=== PATIENT | female | born 1940 | race Caucasian/White ===

== ENCOUNTER 2021-06-25 20:39 | Inpatient (IN) | payer OTHER ==
[~2021-06-25] VITALS: Ht 175.3 cm; Wt 88.5 kg
--- NOTE | ~2021-06-25 | HC ---
[facility] [place] [address] CONSULTATION Name: IANLUIS Chago Room #: 351-P [facility] IN M.R.#: [id number] Admission: 06/25/21 Attend Phys: Samantha Tello MD Discharge: Date of : 42 Report #: [id number] THIS REPORT FOR: cc: Siria Alexandre MD, Ramilo MD Khosla,Meliton Young MD ~ DATE OF SERVICE: 07/08/2021 HISTORY OF PRESENT ILLNESS: A 81-year-old female patient who was seen by me for altered mental status. The patient virtually has no speech. She does not have much expression. She can follow simple commands, but otherwise did not talk to me much. So, the history is mostly from the records. This patient is being seen by multiple consultants. It looks like she has a history of CHF, COPD, difficulty with breathing. She was COVID positive when she came to Emergency Room and required oxygen. REVIEW OF SYSTEMS: This patient's 14-point review of system is from the records. She is in the hospital for a long time now. She has a pretty extensive history. Record indicates she has oxygen requiring COPD. She has a history of cardiomyopathy. She lives in a facility. This is all from the record. This is all the 14-point review of system I can get in this patient. PAST MEDICAL HISTORY: Positive for lung problem as well as cardiac problems as I understand. FAMILY HISTORY: Unavailable. SOCIAL HISTORY: It looks like she is living in a facility PHYSICAL EXAMINATION: The patient's examination is limited. She did not say anything to me. She tried to talk, but appears very dysarthric. She did follow commands many times, but good cranial nerve examination especially visual nash were not possible. She moved left side less spontaneously. She could not cooperate with sensory examination. Reflexes are difficult to tell because she does not relax. There is no meningeal sign. I could not look at the fundus. She does appear to be short of breath. Cardiac examination is unremarkable. Blood pressure is 142/73, pulse is 90, temperature is 97.5. LABORATORY DATA: Last white count was normal. At one time she had hyponatremia, but that has resolved. GFR is now 190. She did have a CT scan of the head which was unremarkable. She is moderately built individual who does not have any dysmorphic features of eyes, ears and face. She does not have any thyroid mass or carotid bruit. Her vision and hearing looks adequate. IMPRESSION: Difficult to form in this patient. She appeared to have encephalopathy secondary to COVID and multiple other problems. Some of them are [address] [address] CONSULTATION Name: LUIS SOSA Room #: 351[facility] IN ..#: [id number] Admission: 06/25/21 Attend Phys: Samantha Tello MD Discharge: Date of : 42 Report #: [id number] baseline and some of them are because of COVID. I reviewed the record and it is being discussed to make our palliative care because of multiple systemic problem. I think that question need to be decided first. If further workup is desired, then I think this patient will need an MRI as a next test to see if she did have a stroke and then she may need some more testing on her. 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 Thank you very much for this referral. We will discuss the patient with hospitalist tomorrow. By: [id number] Meliton Damian MD /nt
--- NOTE | ~2021-06-25 | EMS ---
[facility] [address] [place] [address] EMS Patient Care Report Name: LUIS SOSA Room #: 170-6 ADM IN .R.#: [id number] Admission: 06/25/21 Attend Phys: Samantha Tello MD Discharge: Date of : 42 Report #: [id number] THIS REPORT FOR: //name// Report Transmitted: 06/26/2021 06:07 EMS Care Summary [place], [place]/[facility] Incident [id number] @ 06/25/2021 19:59 Incident Location [id number] [place] [address] Patient LUIS SOSA Female, 81 Years 1940 Patient Address [id number] [place], [place] [address] [place] [address] Patient History Congestive Heart Failure (CHF),Chronic Obstructive Pulmonary Disease (COPD),Hyperlipidemia, Patient Allergies No known allergies, Patient Medications Other, Chief Complaint Covid-19 Disposition Transported No Lights/[place] Dispatch Reason Breathing Problem Transported To [facility] Narrative Arrived on the scene, with P28, for a 81 y/o female that is lying in her bed in the Covid section of the intermediate. Staff said that the Pt has a 101.1 [facility] [address] [place] [address] EMS Patient Care Report Name: LUIS SOSA Room #: 170-6 ADM IN .Cat.#: [id number] Admission: 06/25/21 Attend Phys: Samantha Tello MD Discharge: Date of : 42 Report #: [id number] temp, low O2 sats, rapid breathing, and rapid heart rate. Staff said that they gave the Pt a Tylenol and put her on O2 but it didn't help much. That is why they called us to have her go to the hospital. See Pt Assessment Covid Symptoms See Flowchart. Moved the Pt from the bed to the cot via sheet. Transported to the hospital with zero change or incidents. Moved the Pt from the cot to the bed via sheet. Transferred care to receiving facility. Initial Vitals @20:30P: 120,R: 20,BP: 108/70,Pain: 0/10,GCS: 15,CO: 4,SpO2: 97,Revised Trauma: 12,RI Suspected: false @20:16P: 162,R: 36,BP: 110/74,Pain: 0/10,GCS: 15,SpO2: 88,Revised Trauma: 11,RI Suspected: false Assessments @20:12MENTAL:Event Oriented,Time Oriented,Place Oriented,Person Oriented,SKIN:Hot,HEENT:Head/Face: No Abnormalities,Eyes: No Abnormalities,Neck/Airway: No Abnormalities,LUNG SOUNDS:General: No Abnormalities,Left Upper: No Abnormalities,Right Upper: No Abnormalities,Left Lower: No Abnormalities,Right Lower: No Abnormalities,ABDOMEN:General: No Abnormalities,Left Upper: No Abnormalities,Right Upper: No Abnormalities,Left Lower: No Abnormalities,Right Lower: No Abnormalities,PELVIS//GI:No Abnormalities,EXTREMITIES:Left Arm: No Abnormalities,Right Arm: No Abnormalities,Left Leg: No Abnormalities,Right Leg: No Abnormalities,PULSE:Radial: 2+ Normal,NEURO:No Abnormalities, Impression COVID-19 - Confirmed by testing Procedures @PTAOxygen FlowRate: 4 Device: Nasal Cannula (NC) Response: ImprovedSucceeded@20:12ALS AssessmentResponse: Unchanged@20:143-Lead ECGResponse: UnchangedSucceeded Timeline TRAIN BRAKER,Oxygen FlowRate: 4 Device: Nasal Cannula (NC) Response: ImprovedSucceeded, 19:54,Call Received 19:54,Dispatch Notified 19:59,Dispatched 19:59,En Route 20:06,On Scene 20:12,At Patient [address] [address] EMS Patient Care Report Name: SOSALUIS D Room #: 170-6 ADM IN ..#: [id number] Admission: 06/25/21 Attend Phys: Samantha Tello MD Discharge: Date of : 42 Report #: [id number] 20:12,ALS Assessment,Response: Unchanged 20:14,3-Lead ECG,Response: UnchangedSucceeded, 20:16,BP: 110/74 M,PULSE: 162,RR: 36 R,SPO2: 88 Ox,ETCO2: ,BG: ,PAIN: 0,GCS: 15, 20:22,Depart Scene 20:30,BP: 108/70 M,PULSE: 120,RR: 20 R,SPO2: 97 Ox,ETCO2: ,BG: ,PAIN: 0,GCS: 15, 20:31,At Destination 20:42,Call Closed Disclaimer v1.1 Copyright 2020 [employer] This EMS Care Summary contains data elements from the applicable legal record (which may be displayed differently). It is designed to provide pertinent information for the following purposes: continuity of care, clinical quality, and state data reporting. The complete legal record is available to ED staff and administrators of the receiving hospital in [email or web address]'s Patient Tracker. All data is provided "as is."
[2021-06-25 20:40] VITALS: BP 100/56
[2021-06-25 21:41] LABS: ABSOLUTE NEUTROPHILS 2.9 thou/uL (1.4-8.2); BASOPHILS 0.2 % (0.0-2.0); EOSINOPHILS 0.1 % (0.0-3.0); HEMATOCRIT 41.8 % (37.0-47.0); HEMOGLOBIN 13.1 gm/dL (12.0-15.0); LYMPHOCYTES 13.9 % (24.0-44.0); MCH 25.6 pg (26.0-34.0); MCHC 31.4 g/dL (28.0-37.0); MCV 81.7 fL (80.0-100.0); MONOCYTES 12.2 % (1.0-8.0); PLATELET COUNT 224 thou/uL (150-400); POLYS 73.6 % (36.0-66.0); RBC 5.12 mil/uL (4.20-5.00); RDW 14.6 % (10.5-14.5)
[2021-06-25 21:47] LABS: ANION GAP 2 mmol/L (7-16); BUN 24 mg/dL (7-18); CALCIUM 8.6 mg/dL (8.5-10.1); CHLORIDE 105 mmol/L (98-107); CO2 35 mmol/L (21-32); GLUCOSE 125 mg/dL (74-106); POTASSIUM 4.5 mmol/L (3.5-5.1); SODIUM 142 mmol/L (136-145)
[2021-06-25 21:58] LABS: ALBUMIN 2.7 g/dL (3.4-5.0); SGOT 35 U/L (15-37); SGPT 24 U/L (14-59); TOTAL BILIRUBIN 0.3 mg/dL (0.2-1.0); TOTAL PROTEIN 6.4 g/dL (6.4-8.2); TROPONIN-I <0.06 ng/mL (<0.06)
[2021-06-25 22:18] LABS: BE(vivo) 5.1 mmol/L (-2 to +3); HCO3 31.3 mmol/L (22.0-26.0); PCO2 52.7 mmHg (35.0-45.0); PO2 63.8 mmHg (80.0-100.0); pH 7.392 (7.360-7.450); sO2 91.9 % (92.0-98.0)
[2021-06-26 04:08] LABS: ALBUMIN 2.5 g/dL (3.4-5.0); CREATININE 1.6 mg/dL (0.6-1.0); POTASSIUM 4.5 mmol/L (3.5-5.1); TOTAL BILIRUBIN 0.2 mg/dL (0.2-1.0); TOTAL PROTEIN 6.2 g/dL (6.4-8.2)
[2021-06-26 04:16] LABS: HEMATOCRIT 39.1 % (37.0-47.0); HEMOGLOBIN 12.1 gm/dL (12.0-15.0); MCH 25.6 pg (26.0-34.0); MCV 82.6 fL (80.0-100.0); RBC 4.73 mil/uL (4.20-5.00); RDW 14.1 % (10.5-14.5)
[2021-06-26 13:08] LABS: BE(vivo) 4.6 mmol/L (-2 to +3); HCO3 31.8 mmol/L (22.0-26.0); PCO2 58.7 mmHg (35.0-45.0); pH 7.352 (7.360-7.450); sO2 86.6 % (92.0-98.0)
[2021-06-26 13:09] LABS: PO2 55.2 mmHg (80.0-100.0)
--- NOTE | 2021-06-26 13:58 | EKG ---
[address] [address] ELECTROCARDIOGRAM REPORT Name: IANLUIS Chago Room #: 170-6 ADM IN M.R.#: [id number] Admission: 06/25/21 Attend Phys: Samantha Tello MD Discharge: Date of : 42 Report #: [id number] [facility] ED Test Date: 2021-06-25 Test Time: 20:45:59 Pat Name: LUIS SOSA Department: Room: 170 6 Gender: F Perinatal Breastfeeding Assistant: dipti : 1940 Requested By: Samantha Tello Order Number: [id number] MD: Sylvester Anthony Measurements Intervals [place] Rate: 108 P: 80 ID: [id number] QRS: -30 QRSD: 92 T: 85 QT: 315 QTc: 422 Interpretive Statements Sinus tachycardia Atrial premature complex Probable left ventricular hypertrophy Poor R wave progression Nonspecific T abnormalities, lateral leads Baseline wander in lead(s) II,aVR,aVF,V1,V2,V3 No previous ECG available for comparison Electronically Signed On 06-26-2021 13:58:41 CDT by Sylvester Anthony [email or web address] <ELECTRONICALLY SIGNED> By: Sylvester Anthony MD 06/26/21 1358 44 44 Sylvester Anthony MD /[facility]
--- NOTE | 2021-06-26 17:47 | NUR ---
81-year-old female with past medical history of CHF, COPD presented to the ED on 06-25-21 for evaluation of difficulty breathing. Patient she has had worsening difficulty breathing. She had a positive Covid test approximately 2 days prior to presentation to the ED. Patient has been admitted with Acute on chronic hypoxemic respiratory failure 2/2 COVID PNA. Patient is currently a patient at [facility] where her son Kishore Roberts is her next of kin at [phone]. As plan of care and assessments by MD team are completed CM will follow for all discharge needs.
--- NOTE | 2021-06-27 04:55 | HC ---
[facility] [place] [address] [address] CONSULTATION Name: IANLUIS Chago Room #: 170-6 ADM IN .R.#: [id number] Admission: 06/25/21 Attend Phys: Samantha Tello MD Discharge: Date of : 42 Report #: [id number] THIS REPORT FOR: cc: Siria Alexandre MD, Ramilo MD Barry,Uriel Reynolds MD ~ DATE OF SERVICE: 06/26/2021 INFECTIOUS DISEASE CONSULTATION ATTENDING PHYSICIAN: Dr. Tello. REASON FOR EVALUATION: COVID-19 infection, complicated by pneumonitis, respiratory failure. HISTORY OF PRESENT ILLNESS: The patient examined. This is a 81-year-old woman with fairly extensive medical history with O2 requiring COPD, normally on 4 liters. She has a cardiomyopathy with history of congestive heart failure, who resides in a facility due to disability, who was noted to be COVID positive on 06/23. She had progressive dyspnea, associated with cough, generalized myalgias, arthralgias, fevers, chills. At this point, she is quite encephalopathic, unable to give too many details of her history. She was evaluated in the emergency room. Chest x-ray showed bibasilar infiltrates. ABG: PH 7.392, pCO2 of 52.7, pO2 of 63.8 on baseline 4 liters. Lactic acid 1.0. ProBNP of 80, blood cultures collected and are sterile thus far. She was empirically placed on therapy with azithromycin and ceftriaxone. ALLERGIES: CIPRO. MEDICATIONS: In addition to the antibiotics include atorvastatin, famotidine, rivaroxaban, sacubitril and valsartan combination, amlodipine, carvedilol, budesonide, p.r.n. analgesics and antiemetics. PAST MEDICAL HISTORY: As noted above, COPD, O2 requiring at 4 liters baseline, cardiomyopathy, congestive heart failure, hypertension, hyperlipidemia, reflux, osteoarthritis. It is not clear, may have a degree of dementia. SOCIAL HISTORY: Disabled. FAMILY HISTORY: Noncontributory. REVIEW OF SYSTEMS: Not reliably obtained. PHYSICAL EXAMINATION: GENERAL: She appears chronically ill. She is confused, moderate distress. VITAL SIGNS: Temperature 98.6, pulse 97, respirations 17, blood pressure [address] [address] CONSULTATION Name: LUIS SOSA Room #: 1706 [facility] IN [facility].#: [id number] Admission: 06/25/21 Attend Phys: Samantha Tello MD Discharge: Date of : 42 Report #: [id number] 144/64. SKIN: Warm, dry, no rashes. HEENT: Nasal cannula in place. NECK: Supple. LUNGS: Scattered coarse breath sounds. HEART: Borderline tachycardic, may have a soft systolic murmur. ABDOMEN: Obese. No apparent tenderness, no peritoneal signs. GENITOURINARY AND RECTAL: Deferred. LABORATORY DATA: CBC: White count of 5.0, H and H 12.1 and 39.1, platelets 195. Electrolytes: Sodium 143, potassium 4.5, chloride 105, bicarbonate is 31, anion gap of 7, BUN and creatinine 30 and 1.6, glucose of 130. LFTs unremarkable. Albumin of 2.5, total protein 6.2. Estimated GFR of 31. ProBNP of 80. Lactic acid 1.0. ASSESSMENT AND PLAN: COVID-19 infection, complicated by pneumonitis and respiratory failure in a patient with underlying severe chronic obstructive pulmonary disease, also has encephalopathy. Whether this is primarily secondary to the coronavirus or perhaps some underlying with exacerbation is not entirely clear. We will continue combination therapy. She is on antibacterial treatment for possible secondary bacterial pneumonitis. We will add dexamethasone to her regimen in addition to Actemra. She remains quite tenuous at this point. Continue to monitor expectantly, at risk for additional complications. <ELECTRONICALLY SIGNED> By: Uriel Grey MD 06/27/21 [id number] [id number] Uriel Grey MD /nt
[2021-06-27 05:37] LABS: ALBUMIN 2.3 g/dL (3.4-5.0); ANION GAP 5 mmol/L (7-16); BUN 31 mg/dL (7-18); CALCIUM 8.1 mg/dL (8.5-10.1); CHLORIDE 109 mmol/L (98-107); CO2 32 mmol/L (21-32); CREATININE 0.8 mg/dL (0.6-1.0); DIRECT BILIRUBIN < 0.1 mg/dL (<0.1-0.2); GLUCOSE 128 mg/dL (74-106); PHOSPHORUS 2.5 mg/dL (2.5-4.9); POTASSIUM 4.5 mmol/L (3.5-5.1); SGOT 76 U/L (15-37); SGPT 31 U/L (30-65); SODIUM 146 mmol/L (136-145); TOTAL BILIRUBIN 0.2 mg/dL (0.2-1.0); TOTAL PROTEIN 5.8 g/dL (6.4-8.2)
--- NOTE | 2021-06-27 07:10 | NUR ---
TOOK OVER CARE FROM ANTHONY MENCHAAC AT THIS TIME
--- NOTE | 2021-06-27 08:12 | NUR ---
REPORT GIVEN TO ANTHONY JAIN AT THIS TIME. PHARMACY CALLED TO RESET MEDICATIONS. RT TO GIVE SCHEDULED BREATHING TX
[2021-06-27 15:25] VITALS: BP 103/58
[2021-06-27 21:06] VITALS: BP 103/55
[2021-06-28] VITALS (8 sets, daily range): BP systolic 101–159; BP diastolic 58–75
[2021-06-28 05:18] LABS: ALBUMIN 2.4 g/dL (3.4-5.0); ANION GAP 4 mmol/L (7-16); BUN 32 mg/dL (7-18); CALCIUM 8.8 mg/dL (8.5-10.1); CHLORIDE 109 mmol/L (98-107); CO2 34 mmol/L (21-32); CREATININE 0.9 mg/dL (0.6-1.0); DIRECT BILIRUBIN < 0.1 mg/dL (<0.1-0.2); GLUCOSE 121 mg/dL (74-106); PHOSPHORUS 3.2 mg/dL (2.6-4.7); POTASSIUM 4.9 mmol/L (3.5-5.1); SGOT 78 U/L (15-37); SGPT 31 U/L (14-59); SODIUM 147 mmol/L (136-145); TOTAL BILIRUBIN 0.2 mg/dL (0.2-1.0); TOTAL PROTEIN 5.9 g/dL (6.4-8.2)
[2021-06-28 05:33] LABS: ABSOLUTE NEUTROPHILS 2.9 thou/uL (1.4-8.2); BASOPHILS 0.1 % (0.0-2.0); HEMATOCRIT 37.6 % (37.0-47.0); HEMOGLOBIN 11.8 gm/dL (12.0-15.0); LYMPHOCYTES 21.3 % (24.0-44.0); MCH 25.7 pg (26.0-34.0); MCHC 31.4 g/dL (28.0-37.0); MONOCYTES 12.6 % (1.0-8.0); PLATELET COUNT 235 thou/uL (150-400); RBC 4.59 mil/uL (4.20-5.00); RDW 14.2 % (10.5-14.5); WBC 4.4 thou/uL (4.0-11.0)
--- NOTE | 2021-06-28 07:41 | NUR ---
TALKED WITH PHARMACY WHO WILL BE SENDING ALL THE MORNING MEDS
--- NOTE | 2021-06-28 09:29 | NUR ---
CALLED PHARMACY AGAIN ABOUT THE MORNING MEDS. PT SAID THEY WOULD BE DELIVERED SOON.
--- NOTE | 2021-06-29 03:03 | NUR ---
PT IS ALERT TO SELF ONLY. PLEASANTLY CONFUSED. DOES FOLLOW COMMANDS. DOES NOT ATTEMPT TO GET OOB. WRIST RESTRAINTS DC'D ON DAY SHIFT PER RN LISA. VSS, AFEBRILE. CURRENTLY TOLERATING OPTI-MELISSA WITH CONTINUOUS PULSE OX. DID HAVE ONE LOOSE STOOL. C-DIFF STILL PENDING. IVF INFUSING WITHOUT DIFFICULTY VIA LEFT AC IV. AFIB PER MONITOR. RATES CONTROLLED. SLOW PROGRESS TOWARDS DC GOALS. WILL CONTINUE TO MONITOR.
[2021-06-29 04:00] VITALS: BP 118/69
[2021-06-29 05:11] LABS: ALBUMIN 2.5 g/dL (3.4-5.0); ANION GAP 2 mmol/L (7-16); BUN 21 mg/dL (7-18); CALCIUM 8.5 mg/dL (8.5-10.1); CHLORIDE 111 mmol/L (98-107); CO2 34 mmol/L (21-32); CREATININE 0.7 mg/dL (0.6-1.0); DIRECT BILIRUBIN < 0.1 mg/dL (<0.1-0.2); GLUCOSE 134 mg/dL (74-106); PHOSPHORUS 2.6 mg/dL (2.6-4.7); POTASSIUM 4.2 mmol/L (3.5-5.1); SGOT 69 U/L (15-37); SGPT 34 U/L (14-59); SODIUM 147 mmol/L (136-145); TOTAL BILIRUBIN 0.2 mg/dL (0.2-1.0); TOTAL PROTEIN 5.7 g/dL (6.4-8.2)
[2021-06-29 08:05] VITALS: BP 134/68
[2021-06-29] MEDS ORDERED: VITAMIN C500 M2 PO (08:16)
[2021-06-29] MEDS ORDERED: AMLODIPINE BESY10 MG PO (08:16)
[2021-06-29] MEDS ORDERED: BROVANA15 MCG/2 M INH (08:17)
[2021-06-29] MEDS ORDERED: BUDESONIDE0.5 MG/2 M INH (08:17)
[2021-06-29] MEDS ORDERED: CARVEDILOL6.25 M1 PO (08:18)
[2021-06-29] MEDS ORDERED: VITAMIN D325 MC3 PO (08:19)
[2021-06-29] MEDS ORDERED: CYCLOBENZAPRINE5 MG PO (08:20)
[2021-06-29] MEDS ORDERED: FAMOTIDINE 20 M20 MG PO (08:20)
[2021-06-29] MEDS ORDERED: NEURONTIN300 MG PO (08:20)
[2021-06-29] MEDS ORDERED: NORCO5 PO (08:21)
[2021-06-29] MEDS ORDERED: MECLIZINE HCL12.5 MG PO (08:22)
[2021-06-29] MEDS ORDERED: IPRAT-ALBUT 0.5-3 ML INH (08:22)
[2021-06-29] MEDS ORDERED: NYSTATIN 100,0015 G1 TOP (08:23)
[2021-06-29] MEDS ORDERED: MIRALAX17 GM PO (08:24)
[2021-06-29] MEDS ORDERED: PRAVACHOL40 MG PO (08:24)
[2021-06-29] MEDS ORDERED: ENTRESTO 24 MG1 EACH PO (08:25)
[2021-06-29] MEDS ORDERED: XARELTO20 MG PO (08:25)
[2021-06-29] MEDS ORDERED: SENNA PLUS TAB1 EACH PO (08:25)
[2021-06-29] MEDS ORDERED: ZINC-22050 MG PO (08:26)
[2021-06-29 09:24] LABS: HEMATOCRIT 38.8 % (37.0-47.0); HEMOGLOBIN 12.2 gm/dL (12.0-15.0); MCH 25.8 pg (26.0-34.0); MCHC 31.4 g/dL (28.0-37.0); MCV 82.2 fL (80.0-100.0); RBC 4.72 mil/uL (4.20-5.00); RDW 14.4 % (10.5-14.5); WBC 4.3 thou/uL (4.0-11.0)
[2021-06-29 10:38] VITALS: BP 105/54
[2021-06-29 15:24] VITALS: BP 132/57
--- NOTE | 2021-06-29 15:35 | NUR ---
ASSESSMENT: CM REVIEWED CHART. PER RECORDS PT IS COVID POSITIVE SINCE 06/23 AND WAS ADMITTED FROM HER SNF FACILITY [facility] DUE TO LOW OXYGENM SATURATIONS. PT IS NORMALLY ON ABOUT 3-4 L AT HER BASELINE. PT IS CURRENTLY ON 40L/MIN FIO2 50 PERCENT VIA OPTI FLOW. PT REMAINS IN ENHANVED ISOLATION AND IS RECEIVING REMDESIVIR. PER RECORDS PT REMAINS CONFUSED. CM REACHED OUT TO PATIENT SON TAY. PT WAS ONLY A [facility] FOR A FEW DAYS HE STATES. PRIOR TO THAT PT LIVED IN A HOUSE AND HE REPORTS HE WAS THERE WITH HER BASICALLY 06/06 UNLESS HE WOULD GO TO THE STORE BUT PT BECAME VERY WEAK. CM REACHED OUT TO CAT THE [facility] AT [facility] WHO CONFIRMED PATIENT IS FROM THEIR SNF AND THEY DO ACCEPT COVID POSITIVE PATIENTS. CM FAXED UPDATED CLINICAL TO [facility] AND CONFIRMED THEY RECEIVED IT. PENDING PTS PROGRESSION PLANS WILL BE TO LIKELY RETURN TO [facility] IF ABLE TO AT TIME OF DISCHARGE. CM WILL CONTINUE TO FOLLOW TO ASSIST NEEDED.
[2021-06-29 20:07] VITALS: BP 104/55
--- NOTE | 2021-06-30 00:05 | NUR ---
PT CONFUSED. FOLLOWS COMMANDS. OPTIFLO INTACT. SAT WNL WITH OPTIFLO ON. AFIB ON MONITOR . CLARIFIED WITH INCOME TAX ADJUSTER REGARDING LOVENOX TO BE GIVEN OR NOT SINCE PTS STOOLS WERE + FOR OB YESTERDAY. HELD LOVENOX ORDERED. NO BEEDING NOTED PRESENTLY. BED DOWN . CALL LIGHT IN REACH. CHECKING IN ON PT FREQUENTLY.
[2021-06-30 03:40] VITALS: BP 142/76
[2021-06-30 05:17] LABS: HEMATOCRIT 38.2 % (37.0-47.0); MCH 25.6 pg (26.0-34.0); MCHC 31.4 g/dL (28.0-37.0); MCV 81.6 fL (80.0-100.0); RBC 4.68 mil/uL (4.20-5.00); RDW 14.4 % (10.5-14.5); WBC 4.5 thou/uL (4.0-11.0)
[2021-06-30 05:39] LABS: ALBUMIN 2.5 g/dL (3.4-5.0); ANION GAP 5 mmol/L (7-16); BUN 19 mg/dL (7-18); CHLORIDE 110 mmol/L (98-107); CO2 34 mmol/L (21-32); CREATININE 0.6 mg/dL (0.6-1.0); DIRECT BILIRUBIN < 0.1 mg/dL (<0.1-0.2); GLUCOSE 99 mg/dL (74-106); MAGNESIUM 1.6 mg/dL (1.8-2.4); PHOSPHORUS 2.6 mg/dL (2.5-4.9); SGOT 44 U/L (15-37); SGPT 36 U/L (30-65); SODIUM 149 mmol/L (136-145); TOTAL BILIRUBIN 0.3 mg/dL (0.2-1.0); TOTAL PROTEIN 5.6 g/dL (6.4-8.2)
[2021-06-30 05:52] LABS: CALCIUM 8.2 mg/dL (8.5-10.1)
--- NOTE | 2021-06-30 06:03 | NUR ---
PT PROGRESSING SLOWLY TOWARDS D/C GOALS. VSS AFEBRILE. STILL MILDLY CONFUSED. DENIED PAIN. RESPIATIONS UNLABORED ON OPTIFLO.
[2021-06-30 07:43] VITALS: BP 138/73
[2021-06-30 11:50] VITALS: BP 111/57
--- NOTE | 2021-06-30 13:09 | NUR ---
SAYDA reviewed chart and spoke with nursing and attending physician. Pt remains in Enhanced Isolation due to COVID. Pt is afebrile and requiring optiflow. Pt is on IV abx and IV steroids. Pt to complete course of Remdesivir today. SAYDA spoke with Cat, [place] post-acute liaison, to provide update. Requested DPOA ppwk to be sent to SAYDA if on file. Plan is for pt to return to [facility] when medically stable. SAYDA is following to assist as needed with discharge planning.
[2021-06-30 15:15] VITALS: BP 136/77
[2021-06-30 19:31] VITALS: BP 127/65
--- NOTE | 2021-07-01 00:03 | NUR ---
PT RESTING IN BED, VERY TALKATIVE AND CHEERFUL, ORIENTED TO SELF AND SITUATION. OPTIFLO AND CONTINUOUS PULSE OX INTACT. LUNGS COARSE, LOOSE COUGH. ELIZABETH TO DD. PT CALLED HER SON AND SISTER WITH ASSISTANCE. PT CONSTANTLY MOVING IN BED. BED ALARM ON.
[2021-07-01 03:44] VITALS: BP 126/64
[2021-07-01 07:25] VITALS: BP 119/48
--- NOTE | 2021-07-01 07:47 | NUR ---
PATIENT WAS FOUND ON ROOM AIR SAT 86% WHEN RT TRIED TO PLACE OXYGEN ON THE PATIENT SHE BECAME PHYSICALLY AGGRESIVE. PATIENT WON'T KEEP ON OXYGEN AND DESATS QUICKLY.
--- NOTE | 2021-07-01 07:59 | NUR ---
Assess for length of stay. Admit COVID pneumonia. Eating >75% meals, BMI 30/obese. Presents low nutrition risk
[2021-07-01 14:05] LABS: HEMATOCRIT 39.7 % (37.0-47.0); HEMOGLOBIN 12.4 gm/dL (12.0-15.0); MCH 25.4 pg (26.0-34.0); MCHC 31.2 g/dL (28.0-37.0); MCV 81.4 fL (80.0-100.0); RBC 4.88 mil/uL (4.20-5.00); WBC 6.1 thou/uL (4.0-11.0)
[2021-07-01 14:18] LABS: CREATININE 0.6 mg/dL (0.6-1.0); MAGNESIUM 1.9 mg/dL (1.8-2.4); POTASSIUM 4.5 mmol/L (3.5-5.1)
[2021-07-01 14:29] LABS: CALCIUM 8.5 mg/dL (8.5-10.1)
--- NOTE | 2021-07-01 14:55 | NUR ---
SAYDA reviewed chart and spoke with nursing and attending physician. Pt remains in Enhanced Isolation due to COVID. Pt is afebrile and requiring optiflow. Pt is on IV abx and IV steroids. SAYDA faxed clinical updates to [place] post-acute liaison for review. PT/OT evals ordered today. SAYDA left voice message for pt's son, Kishore, to provide update. Plan is for pt to return to [facility] when medically stable. SAYDA is following to assist as needed with discharge planning.
[2021-07-01 15:52] VITALS: BP 125/65
[2021-07-01 19:30] VITALS: BP 104/51
--- NOTE | 2021-07-01 19:37 | NUR ---
RN ASSUNED PT'S CARE AT 0700-1900PM, PT IS A&OX2 ( PERSON AND PLACE ), PT IS CONFUSED AT TIME, PT IS ON OPTIFLOW 60-70%, O2 35-40L/MIN/NC, PT'S O2SAT STAYA AT 93-98%, PT'S VS ARE STABLE AT DAY SHIFT, PT NEEDS HELP ADL.
--- NOTE | 2021-07-01 19:51 | NUR ---
PT STATED WANTING TO SLEEP AND STAY WARM. PT LUNGS COARSE, OPTIFLO INTACT. PALE SKIN TONE. COOL BLE. ELIZABETH TO DD. BED ALARM ON.
--- NOTE | 2021-07-01 20:54 | NUR ---
PT REPORTING PAIN ALL OVER AND NOT FEELING WELL. PRN PROVIDED.
--- NOTE | 2021-07-01 21:28 | NUR ---
PROVIDER NOTIFIED PT INCREASE IN ANXIETY RESTLESSNESS CALLING OUT WHINING REPORTING JUST NOT FEELING WELL AND THAT RT STATED HER LUNGS SOUNDED WORSE.
--- NOTE | 2021-07-01 22:25 | NUR ---
PT ADMITTED TO FLOOR , SHE HAD BEEN IN ED HOLDING 24HRS. POSITIVE COVID LAST TUESDAY, HAD INCREASE N/V CAME TO ED. O2 2L, LUNGS DIMINISHED, COUGHING THAT LEADS TO GAGGING. PT HAS IMMUNE DISORDER (STILLS DISEASE) AND WAS TOLD BY NOT TO GET VACCINATION. INDEPENDENT STEADY GAIT. PT REPORTS FEELING GOOD TODAY BUT HAVING FREQUENT FLUCTUATION IN HAVING GOOD AND BAD DAYS. PT EDUCATED TO CALL FOR ASSISTANCE NEEDED.
[2021-07-02 03:48] LABS: HEMATOCRIT 37.8 % (37.0-47.0); MCH 25.9 pg (26.0-34.0); MCHC 31.7 g/dL (28.0-37.0); MCV 81.6 fL (80.0-100.0); RBC 4.64 mil/uL (4.20-5.00); RDW 14.3 % (10.5-14.5); WBC 7.6 thou/uL (4.0-11.0)
[2021-07-02 03:52] LABS: CALCIUM 8.4 mg/dL (8.5-10.1); CREATININE 0.6 mg/dL (0.6-1.0); MAGNESIUM 1.8 mg/dL (1.8-2.4); POTASSIUM 4.6 mmol/L (3.5-5.1)
[2021-07-02 03:56] VITALS: BP 124/55
--- NOTE | 2021-07-02 06:09 | NUR ---
RESTLESS CRYING ROLLING BACK AND FORTH IN BED, DEMANDING O2 BE TAKEN OFF, TAKING OFF OPTIFLO. STATING SHE WANTS TO GO HOME. PRN PROVIDED, OPTIFLO INTACT.
[2021-07-02 07:20] VITALS: BP 96/74
--- NOTE | 2021-07-02 13:16 | NUR ---
SAYDA reviewed chart and spoke with nursing and attending physician. Pt remains in Enhanced Isolation due to COVID. Pt is afebrile and requiring optiflow. Pt is on IV abx and IV steroids. SAYDA spoke with [place] post acute liaison to provide update. Liaison to check with [facility] to find out how much oxygen they can provided at the facility. Plan is for pt to return to [facility] when medically stable. SAYDA is following to assist as needed with discharge planning.
--- NOTE | 2021-07-02 16:47 | NUR ---
RN ASSUMED PT'S CARE AT 0700AM, PT IS A&OX2 ( PERSON AND PLACE), PT IS CONFUSED AT TIME, PT IS ON OPTIFLOW O2 50-60 %, O2 35L/MIN/NC, PT'S O2SAT STAYS AT 93-98%, PT IS CONTINUING IV ABX AND TREAT COVID MEDICATIONS, PT HAS WORKED WITH PT/OT TODAY, PT NEEDS HELP ADL AND MEALS. PT DENIES PAIN AND N/V BY THIS TIME.
[2021-07-02 17:29] VITALS: BP 156/52
[2021-07-02 19:42] VITALS: BP 116/63
[2021-07-03 04:12] VITALS: BP 135/58
[2021-07-03 04:28] LABS: HEMATOCRIT 38.6 % (37.0-47.0); MCH 25.5 pg (26.0-34.0); MCHC 31.2 g/dL (28.0-37.0); MCV 81.6 fL (80.0-100.0); RBC 4.73 mil/uL (4.20-5.00); RDW 14.1 % (10.5-14.5); WBC 6.4 thou/uL (4.0-11.0)
[2021-07-03 04:46] LABS: CALCIUM 8.5 mg/dL (8.5-10.1); CREATININE 0.7 mg/dL (0.6-1.0); POTASSIUM 4.3 mmol/L (3.5-5.1)
[2021-07-03 07:26] VITALS: BP 109/64
[2021-07-03 11:26] VITALS: BP 141/101
--- NOTE | 2021-07-03 14:22 | NUR ---
SAYDA reviewed chart and spoke with nursing and attending physician. Pt remains in Enhanced Isolation due to COVID. Pt is afebrile and requiring O2. Pt is on IV steroids. No weekend discharge planned. SAYDA spoke with pt's son, Kishore, via phone. Provided update and answered questions. Kishore confirms plan is for pt to return to [facility] when pt is ready for discharge. SAYDA updated [place] post-acute liaison. Will fax clinical/therapy updates to [facility] on Tuesday. SAYDA is following to assist as needed with discharge planning.
[2021-07-03 15:26] VITALS: BP 119/55
[2021-07-03 19:40] VITALS: BP 105/55
--- NOTE | 2021-07-03 19:44 | NUR ---
RN ASSUMED PT'S CARE AT 0700-1900PM, PT IS A&OX2 ( PERSON AND PLACE), PT CAN FOLLOW COMMANDS, PT IS CONFUSED AT TIME, PT IS ON OPTIFLOW O2 50-60%, O2 35L/MIN/NC, PT'S O2SAT STAYS AT 92-96%, PT'S VS ARE STABLE AT DAY SHIFT.
--- NOTE | 2021-07-03 22:30 | NUR ---
PT CONFUSED AT START OF SHIFT. VSS AFEBRILE. NEW IV RESTARTED RIGHT HAND. HALDOL GIVEN FOF AGITATION/ ANXIETY. PT RESTED QUIETLY BRIEFLY. SHE LATER BECAME AGITATED AND STARTED YELLING. SHE PULLED OF HER OPTIFLOW. UNABLE TO CALM DOWN. NOFIFIED Hector BEVERLY.HALDOL IM GIVEN. SOFT WRIST RESTRAINTS APPLIED SINCE PT CONTINUES TO YELL REPEATEDLY AND PULL OFF O2.
--- NOTE | 2021-07-03 22:44 | NUR ---
NOTIFIED PT'S SISTER ERI OF RESTRAINTS APLLIED DUE TO PULLING OFF O2 AGITATION ETC. SHE WAS OK WITH RESTRAINTS. PT'S SON DID NOT ANSWER PHONE. ENERGY SPECIALIST AND SEMICONDUCTOR PACKAGES PLATEMAKER NOTIFIED.
[2021-07-04 00:16] VITALS: BP 117/68
[2021-07-04 05:09] LABS: HEMATOCRIT 36.8 % (37.0-47.0); HEMOGLOBIN 11.9 gm/dL (12.0-15.0); MCHC 32.2 g/dL (28.0-37.0); MCV 80.8 fL (80.0-100.0); RBC 4.56 mil/uL (4.20-5.00); RDW 13.8 % (10.5-14.5); WBC 6.6 thou/uL (4.0-11.0)
[2021-07-04 05:14] VITALS: BP 131/71
[2021-07-04 05:33] LABS: CALCIUM 8.2 mg/dL (8.5-10.1); CREATININE 0.5 mg/dL (0.6-1.0); POTASSIUM 4.1 mmol/L (3.5-5.1)
--- NOTE | 2021-07-04 07:05 | NUR ---
PT STILL IN RESTRAINTS. SHE IS INTERMITTENTLY RESTLESS AND TALKING CONSTANTLY. LEFT RESTRAINTS ON TO PROTECT IV AND OPTIFLO. NO CHANGES IN ASSESSMENT.
[2021-07-04 07:21] VITALS: BP 129/94
[2021-07-04 11:59] VITALS: BP 111/55
[2021-07-04 15:21] VITALS: BP 133/68
--- NOTE | 2021-07-04 18:12 | NUR ---
CARE ASSUMED THIS AM, ALERT AND OREINTED X3, CONFUSED AND YELLS OUT. SOFT WRIST RESTRAINT IN PLACE DUE TO PT TAKING OF MEDICAL DEVICES( OXYGEN) OFF. CONTINUE TO BE ON OPTIFLOW. ELIZABETH IN PLACE. FALL PRECAUTIONS IN PLACE. WILL CONTINUE TO MONITOR
[2021-07-04 19:22] VITALS: BP 135/74
--- NOTE | 2021-07-04 22:35 | NUR ---
PT CONFUSED AND CONSTANTLY REPEATING "HEY". Hydrocodone given for c/o generalized discofort. PT SLEPT FOR 2 1/2 HRS. ZGARG APPLIED TO BOTTOM. SATS WNL ON 45LF 43%FIO2. WILL CONTINUE TO MONITOR PT FOR CHANGES.
[2021-07-05 04:45] VITALS: BP 158/81
--- NOTE | 2021-07-05 06:14 | NUR ---
PT PROGRESSING SLOWLY TOWARDS D/C GOALS. VSS NAFEBRILE. SAT 93% ON CURRENT OPTIFLOW SETTINGS. PT YELLING AT TIMES. MEDICATING WITH HALDOL AND HYDROCODONE FOR NECK PAIN AND ANXIETY/ RESTLESSNESS. BED YINA. BED ALARM IS ON. PT IN RESTRAINTS TO PROTECT IV ACCESS AND OPTIFLOW. WILL CONTINUE TO MONITOR PT FOR CHANGES.
[2021-07-05 07:46] VITALS: BP 152/76
--- NOTE | 2021-07-05 12:45 | NUR ---
CARE ASSUMED THIS AM, PT ALERT AND ORIENTED X2, DENIES ANY CHEST PAIN. PT CONTINUES TO YELL OUT AT TIMES. CONTINUE TO BE ON OPTIFLOW 35L, 40% FIO2. ELIZABETH IN PLACE, PATENT AND SECURED. BILATERL SOFT WRIST RESTRAINTS DUE TO PT PULLING OUT MEDICAL DEVICES.PT IS SLOWLY PROGRESSING TOWARDS CARE, WILL CONTINUE TO MONITOR
[2021-07-05 15:07] VITALS: BP 108/57
--- NOTE | 2021-07-05 18:31 | NUR ---
1700 bilateral soft wrist restraint discontinue. Pt hasnt reach for medical devices.
[2021-07-05 19:30] VITALS: BP 110/61
--- NOTE | 2021-07-05 22:48 | NUR ---
PT CONFUSED. LESS AGITATED THAN YESTERDAY. RESTRAINTS ARE OFF AND WERE DISCONTINUED ON DAY SHIFT. PT IS MUCH CALMER TONIGHT AND NOT YELLING OUT. REPOSITIONING PT Q 2 HRS. HER SATS HAVE BEEN AROUND 87% AT START OF SHIFT. RT NOTIFIED AND HE HAS INCREASED HER TO 50 LF ON THE OPTIFLO. EVANGELINA IS AROUND 93%. PT INC. OF STOOL X2 TONIGHT SO FAR. ZGARD APPLIED. NO BREAKDOWN NOTED. BED DOWN .BED ALARM IS ON. WILL CONTINUE TO MONITOR PT FOR DESATURATION AND S/S DISRESS.
[2021-07-06 03:30] VITALS: BP 138/71
--- NOTE | 2021-07-06 05:15 | NUR ---
PT PROGRESSING SLOWLY TOWARDS D/C GOALS. VSS AFEBRILE. SATS WNL ON OPTIFLO AT 50LF AND 68 FIO2. SHE IS LESS AGITATED TODAY AND HAS REMAINED OFF OF RESTRAINTS. HYDROCODONE GIVEN FOR BACK PAIN 08/23. PT FELL BACK ASEEP. SHE IS RESTING QUIETLY. WILL CONTINUE TO MONITOR PT FOR CHANGES.
[2021-07-06 05:28] LABS: ABSOLUTE NEUTROPHILS 6.9 thou/uL (1.4-8.2); BASOPHILS 0.1 % (0.0-2.0); EOSINOPHILS 0.1 % (0.0-3.0); HEMATOCRIT 37.8 % (37.0-47.0); LYMPHOCYTES 11.7 % (24.0-44.0); MCH 25.8 pg (26.0-34.0); MCHC 31.8 g/dL (28.0-37.0); MCV 81.1 fL (80.0-100.0); MONOCYTES 9.2 % (1.0-8.0); PLATELET COUNT 173 thou/uL (150-400); POLYS 78.9 % (36.0-66.0); RBC 4.66 mil/uL (4.20-5.00); RDW 14.5 % (10.5-14.5); WBC 8.7 thou/uL (4.0-11.0)
[2021-07-06 11:11] VITALS: BP 155/73
[2021-07-06 15:07] VITALS: BP 129/70
--- NOTE | 2021-07-06 16:31 | NUR ---
SAYDA reviewed chart and spoke with nursing and attending physician. Pt remains in Enhanced Isolation due to COVID. Pt is afebrile and on optiflow. Pt is on IV steroids. Psych consulted. Pt was placed in restraints over the weekend due to agitation. Restraints were removed. SAYDA received call from pt's sister, Christelle. SAYDA returned call. Lengthy discussion with Christelle regarding plan of care and discharge. Christelle states that she would like pt to come live with her. Christelle states she does not know if pt has a DPOA. Pt's home is in poor condition. SAYDA explained that her son is her next of kin. Christelle again states that she has an extra bedroom for pt to come stay with her. SAYDA is following to assist as needed with discharge planning.
[2021-07-06 19:41] VITALS: BP 115/64
--- NOTE | 2021-07-07 00:36 | NUR ---
displaces her oxygen frequently. she is fussy and complianing that her back hurts 10/10. she was given er back pain medication at 1910. she is unable to understand the nickolas to wait the appropiate amount of time between doses. she is yelling at times and is unable to understand that that i cannot stay in the room continuously all night. Haldol only minimally effective. she did not take any medication all day shift, then tonight is incredibly agitated.
[2021-07-07 04:42] VITALS: BP 184/103
[2021-07-07 07:26] VITALS: BP 117/54
[2021-07-07 11:06] VITALS: BP 103/56
--- NOTE | 2021-07-07 13:50 | NUR ---
SAYDA reviewed chart and spoke with nursing and attending physician. Pt remains in Enhanced Isolation due to COVID. Pt is afebrile and requiring optiflow. Pt is on IV steroids. CT of the head and chest ordered today. SAYDA faxed clinical/therapy updates to [place] post-acute liaison for review. SAYDA left voice message for pt's son, Kishore, to provide update. SAYDA is following to assist as needed with discharge planning.
--- NOTE | 2021-07-07 14:36 | NUR ---
Followup: remains in treatment for covid pneumonia. Intake had dropped to 50% for 5 days, then 5-50% for [address] following and pt requires constant supervision with eating. Has ensure pudding ordered, but will change to ensure enlive now that pt on thin liquids. Wts 204-209 lb. Remains low nutrition risk with appropriate nutrition interventions in place
[2021-07-07 14:55] VITALS: BP 129/62
[2021-07-07 19:30] VITALS: BP 115/60
[2021-07-08 03:15] VITALS: BP 154/85
--- NOTE | 2021-07-08 05:10 | NUR ---
Pt. slept fair till about 0245 then started pulling tele and O2 off. She has been reoriented and repositioned for comfort. Medicated for pain with some relief. Also medicated for anxiety and agitation. She finally started resting aound 0500. O2 sat in the mid 90 to upper 90's at rest. Cont. on enhanced precaution , afebrile.
[2021-07-08 07:20] VITALS: BP 118/55
[2021-07-08 11:55] VITALS: BP 109/48
--- NOTE | 2021-07-08 15:00 | NUR ---
SAYDA reviewed chart and spoke with nursing and attending physician. Pt remains in Enhanced Isolation due to COVID. Pt is afebrile and requiring optiflow. Pt is on IV steroids. CT of head and chest ordered and completed today. Neuro consulted today due to AMS. SAYDA updated [facility] post-acute liaison. Pt was originally from [facility] and was transferred to [facility] for COVID isolation. SAYDA left voice message for pt's son, Kishore, to provide update. SAYDA is following to assist as needed with discharge planning.
[2021-07-08 15:25] VITALS: BP 142/73
--- NOTE | 2021-07-08 18:30 | NUR ---
Pt A/Ox1 at times. Confusion. Neuro seen pt today. Opti-flow. Pain management is still being worked on toward pt goal.
[2021-07-08 20:35] VITALS: BP 120/66
--- NOTE | 2021-07-09 00:40 | NUR ---
PROGRESS PT ALERT AND ORIENTED TO SELF. VSS. OPTIFLO AT 45/50% WITH SATS IN MID 90'S REMOVES FREQUENTLY AND SATS DROP QUICKLY TO HIGH 70'S LOW 80'S. LUNG SOUNDS DIMINISHED AND NO COUGH NOTED. PT REPORTS PAIN TO BOTH HIPS AND HYDROCODONE GIVEN PRN WITH EFFECT, PT SETTLES AND RESTS AFTER. ELIZABETH INTACT DRAINING ADEQUATE AMOUNT OF CLEAR YELLOW URINE. HAD A BM ON DAY SHIFT TODAY. SKIN C/D/I WITH NO AREAS OF REDNESS OR BREAKDOWN NOTED. DINNER TRAY AT BEDSIDE AND PT REQUESTED ASSISTANCE TO EAT AND SHE ATE APPROXIMATELY 40%. DRINKING LEMON KENAITZE SODA OFFERING SOME WITH ROUNDINGSCD'S IN PLACE PT POSITIONED ON SIDE. SLEEPING AT THIS TIME. CONTINUE TO MONITOR.
[2021-07-09 05:01] VITALS: BP 131/79
[2021-07-09 07:29] VITALS: BP 141/79
[2021-07-09 11:12] VITALS: BP 140/70
[2021-07-09 15:34] VITALS: BP 135/72
--- NOTE | 2021-07-09 16:14 | NUR ---
SAYDA reviewed chart and spoke with nursing and attending physician. Pt remains in Enhanced Isolation due to COVID. Pt is afebrile and requiring optiflow. Pt is on IV steroids. Neuro consulted and following. SAYDA discussed plan of care with attending physician. Recommendation for consideration for LTAC placement due to high O2 demands. SAYDA spoke with pt's son, Kishore, via phone. Provided update and discussed LTAC referral. Explained the level of care provided at LTAC v. SNF/LTC. Pt's son verbalized understanding. LTAC options provided. Pt's son requests LTAC referral to [facility] due to location. SAYDA faxed referral to [facility] (with rev codes). Notified LTAC liaison, Daniel, of new referral. Awaiting input from LTAC at this time. SAYDA updated [facility] post-acute liaison. SAYDA is following to assist as needed with discharge planning.
--- NOTE | 2021-07-09 16:45 | NUR ---
THIS RN ATTEMPTED TO BRUSH PT HAIR PER HER REQUEST. PT WANTED TO DANGLE ON SIDE OF BED. PT UNABLE TO SIT UNAIDED FOR LONGER THAN ONE MINUTE. PT DID REQUEST A CUP OF COFFEE AND DID DRINK MOST OF IT. PT CONTINUES BOUTS OF CONFUSION AND TAKES OFF HER OPTIFLOW FREQUENTLY. PT WAS UNABLE TO HAVE BM ON BEDPAN.
[2021-07-09 19:13] VITALS: BP 133/78
[2021-07-10 03:07] VITALS: BP 153/84
--- NOTE | 2021-07-10 04:53 | NUR ---
PT MAKING POOR PROGRESS TOWARDS GOALS. PT PULLED O2 CANNULA OUT OF PLACE SEVERAL TIMES. ROOM AIR O2 SAT 82-84%. WITH OPTIFLO AT 45L PT O2 SAT 93-97%. OCCASIONAL CONGESTED COUGH NOTED. LUNGS DIMINISHED THROUGOUT.
[2021-07-10 07:22] VITALS: BP 114/58
[2021-07-10 11:10] VITALS: BP 116/56
--- NOTE | 2021-07-10 13:39 | NUR ---
SAYDA reviewed chart and spoke with nursing and attending physician. Pt remains in Enhanced Isolation due to COVID. Pt is afebrile and on IV steroids. SAYDA spoke with [facility] lia[facility], who states they are able to accept pt from a clinical standpoint. Unsure of bed availability. SAYDA notified by nursing that pt took off the optiflow and is on room air. Sats remaining above 90% on RA. SAYDA discussed with attending physician. No weekend discharge planned. Pt may be able to discharge back to [facility] and [facility], if not needing LTAC level of care. SAYDA updated [facility] lia[facility] and liaison with [facility] facilities. SAYDA spoke with pt's son, Kishore, via phone to provide update and discuss discharge options. Pt's son is hopeful that pt will be able to return to [place], as it is closer to family. SAYDA is following to assist as needed with discharge planning.
[2021-07-10 15:05] VITALS: BP 136/87
--- NOTE | 2021-07-10 18:26 | NUR ---
ASSUMED PATIENT CARE AT 0700. ALERT, RESTLESS CONFUSED. NOTED PATIENT REFUSED TO WEAR OPTIFLOW AT 1230. PATIENT ON RA SINCE THEN. TOLERATED WELL. O2 SAT 93-99%. C/O BACK PAIN. PAIN MED GIVEN, POOR APPETITE. SLOWLY TOWARDS POC GOALS
[2021-07-10 20:34] VITALS: BP 144/85
--- NOTE | 2021-07-11 03:20 | NUR ---
Pt. in room air at beginning of shift with O2 sat of 96%. O2 at 2L/NC per RT at HS. She desats when sleeping in the mid 80's and she's a mouth breather. Ventimask at 50% applied by RT and has maintained O2 sat in the mid to upper 90's as long as pt. is at rest and keeps mask on. Pain med given for c/o back pain which she rated as 10/10. Assisted to reposition and at times pt. repositions herself sideways on the bed. Bed alarm on. Cont. on enhanced precaution,afebrile. Remains confused and needs frequent reorientation.
[2021-07-11 04:00] VITALS: BP 141/63
[2021-07-11 08:00] VITALS: BP 134/62
[2021-07-11 11:18] VITALS: BP 146/80
[2021-07-11 13:12] LABS: CALCIUM 8.9 mg/dL (8.5-10.1); CREATININE 0.6 mg/dL (0.6-1.0)
[2021-07-11 13:27] LABS: POTASSIUM 4.2 mmol/L (3.5-5.1)
[2021-07-11 15:05] VITALS: BP 111/82
--- NOTE | 2021-07-11 17:44 | NUR ---
ASSUMED PATIENT CARE AT 0700. ALERT RESTLESS AND CONFUSED. BETTER EATTING TODAY. VSS. TOLERATED ON 2L/NC. SLOWLY TOWARDS TO POC GOALS.
[2021-07-11 19:14] VITALS: BP 130/48
--- NOTE | 2021-07-11 22:33 | NUR ---
PT PROGRESSING TOWARDS D/C GOALS. VSS AFEBRILE NO C/O SOA ON 2LNC. SATS 96-97%. NO C/O PAIN PRESENTLY. SHE IS SLEEPING QUIETLY AFTER HS MEDS GIVEN. BED DOWN. CALL LIGHT IN REACH. BED ALARM IS ON.
--- NOTE | 2021-07-12 01:05 | NUR ---
PT C/O BACK PAIN 06/23. MEDICATED WIT 1 HYDROCODONE. NEW SL STARTED RAC. PT TEARFL THROUGHOUT PLACEMENT. EXPLAINED NEED FOR IV ACCESS FOR PRN MEDS.
[2021-07-12 05:11] LABS: HEMATOCRIT 39.1 % (37.0-47.0); HEMOGLOBIN 12.1 gm/dL (12.0-15.0); MCH 24.9 pg (26.0-34.0); MCHC 30.9 g/dL (28.0-37.0); MCV 80.5 fL (80.0-100.0); RBC 4.85 mil/uL (4.20-5.00); RDW 14.7 % (10.5-14.5); WBC 11.6 thou/uL (4.0-11.0)
[2021-07-12 05:27] VITALS: BP 141/72
--- NOTE | 2021-07-12 07:32 | NUR ---
PT RESTING QUIETLY AFTER FLEXORIL GIVEM FOR PAIN.TOLERATED 2LNC ALL NIGHT . PROGRESSING SLOWLY TOWARDS D/C GOALS.
[2021-07-12 15:36] VITALS: BP 142/65
--- NOTE | 2021-07-12 18:37 | NUR ---
ASSUMED PATIENT CARE AT 0700. MORE ALERT. GOOD APPATITE TODAY. PROGRESSING TOWARDS POC GOALS.
[2021-07-12 19:57] VITALS: BP 128/64
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
[2021-07-13 02:27] VITALS: BP 130/58
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
[2021-07-13 09:36] VITALS: BP 130/58
--- NOTE | 2021-07-13 11:26 | NUR ---
DISCHARGE NOTE: SAYDA reviewed chart and spoke with nursing and attending physician. Pt remains in Enhanced Isolation due to COVID. Pt is medically stable for discharge to [facility] today. Pt is on 2L of O2 via NC. SAYDA updated [facility] post-acute liaison, who confirms they are able to accept pt today. Stretcher van transportation scheduled for 1500 per facility's arrangements. SAYDA spoke with pt's son, Kishore, via phone to provid update. Kishore is agreeable with discharge plan. Kishore requested SW contact pt's sister, Christelle, to provide update. SAYDA spoke with Christelle via phone to notify of discharge. SAYDA encouraged both pt's son and sister to contact the facility directly to discuss the visitory policy. Contact info for the facility provided to Christelle. SAYDA updated attending physician and pt's nurse. Nursing provided number to call report. Chart copy requested. Awaiting final discharge ppwk at this time. SAYDA is following to finalize discharge.
[2021-07-13] MEDS ORDERED: MAGOX 400400 MG PO (12:49)
[2021-07-13] MEDS ORDERED: PROTONIX40 M2 PO (12:49)
[2021-07-13] MEDS ORDERED: PREDNISONE 20 M20 MG PO (12:49)
[2021-07-13] MEDS ORDERED: GABAPENTIN 100100 MG PO (12:49)
[2021-07-13] MEDS ORDERED: LOPERAMIDE 2 MG2 M1 PO (12:49)
[2021-07-13] MEDS ORDERED: TRAZODONE HCL50 MG PO (12:49)
[2021-07-13] MEDS ORDERED: OLANZAPINE ODT5 MG PO (12:49)
[2021-07-13] MEDS ORDERED: DOXYCYCLINE HYC50 MG PO (12:49)
--- NOTE | 2021-07-13 15:43 | NUR ---
ASSUMED PATIENT CARE AT 0700. ALERT. CONFUSED. EATTING BETTER. PROGRESSING TOWARDS POC GOALS. DC TO SNF NOW.
== END 2021-07-13 15:45 | DRG 871 ==
LOC: ER 20:39 → EROBS 23:29 → 3W 23:29 → EROBS 06-27 09:16 → 3W 06-28 11:35
PROVIDERS: Emergency Medicine; Hospitalist; Internal Medicine; Nurse Practitioner Family; Specialist; ADMIT Hospitalist; ATTEND Hospitalist
PROC: XW033E5 Introduction of Remdesivir Anti-infective into Peripheral Vein, Percutaneous Approach, New Technology Group 5 (ICD-10-PCS; principal; 2021-06-26)
PROC: 5A0935A Assistance with Respiratory Ventilation, Less than 24 Consecutive Hours, High Flow/Velocity Cannula (ICD-10-PCS; 2021-06-27)
PROC: 5A0935A Assistance with Respiratory Ventilation, Less than 24 Consecutive Hours, High Flow/Velocity Cannula (ICD-10-PCS; 2021-06-28)
PROC: 5A0935A Assistance with Respiratory Ventilation, Less than 24 Consecutive Hours, High Flow/Velocity Cannula (ICD-10-PCS; 2021-06-29)
PROC: 5A0935A Assistance with Respiratory Ventilation, Less than 24 Consecutive Hours, High Flow/Velocity Cannula (ICD-10-PCS; 2021-06-30)
PROC: 5A0935A Assistance with Respiratory Ventilation, Less than 24 Consecutive Hours, High Flow/Velocity Cannula (ICD-10-PCS; 2021-07-01)
PROC: 5A0935A Assistance with Respiratory Ventilation, Less than 24 Consecutive Hours, High Flow/Velocity Cannula (ICD-10-PCS; 2021-07-02)
PROC: 5A0955A Assistance with Respiratory Ventilation, Greater than 96 Consecutive Hours, High Flow/Velocity Cannula (ICD-10-PCS; 2021-07-05)
PROC: 5A0935A Assistance with Respiratory Ventilation, Less than 24 Consecutive Hours, High Flow/Velocity Cannula (ICD-10-PCS; 2021-07-10)
DX: A41.9 Sepsis, unspecified organism (principal); U07.1 COVID-19; J12.82 Pneumonia due to coronavirus disease 2019; G93.41 Metabolic encephalopathy; J80 Acute respiratory distress syndrome; N17.9 Acute kidney failure, unspecified; E87.0 Hyperosmolality and hypernatremia; I42.9 Cardiomyopathy, unspecified; J44.0 Chronic obstructive pulmonary disease with (acute) lower respiratory infection; I50.9 Heart failure, unspecified; E78.5 Hyperlipidemia, unspecified; M19.90 Unspecified osteoarthritis, unspecified site; K21.9 Gastro-esophageal reflux disease without esophagitis; I25.10 Atherosclerotic heart disease of native coronary artery without angina pectoris; I11.0 Hypertensive heart disease with heart failure; R41.0 Disorientation, unspecified; Z79.899 Other long term (current) drug therapy; Z88.1 Allergy status to other antibiotic agents
CPT/HCPCS: 10879